=== PATIENT | female | born 1960 | race American Indian/Alaskan Native ===

== ENCOUNTER 2022-09-09 19:16 | Inpatient (IN) | payer OTHER ==
[~2022-09-09] VITALS: Ht 165.1 cm; Wt 96.9 kg
[2022-09-09 22:19] VITALS: BP 100/64
[2022-09-09] MEDS ORDERED: LOSA50 PO (22:32)
[2022-09-09] MEDS ORDERED: Inderal40 MG PO (22:33)
[2022-09-09] MEDS ORDERED: Seroquel Xr50 MG PO (22:34)
[2022-09-10 01:51] VITALS: BP 90/65
[2022-09-10 03:17] VITALS: BP 95/66
[2022-09-10 04:27] LABS: Hematocrit 35.7 % (33.0-51.0); Hemoglobin 12.3 g/dL (11.5-16.0); Mean Corpuscular HGB 32.5 pg (26.0-34.0); Mean Corpuscular HGB Conc 34.5 g/dL (31.5-36.5); Mean Corpuscular Volume 94 fL (80-100); Mean Platelet Volume 9.8 fL (9.1-12.4); Platelet Count 171 K/mm3 (150-400); RDW Coefficient Variation 13.3 % (11.7-14.2); Red Blood Cell Count 3.79 M/mm3 (3.80-5.20); White Blood Cell Count 6.01 K/mm3 (4.00-11.30)
[2022-09-10 04:52] LABS: Albumin, Blood 2.7 g/dL (3.4-5.0); Bilirubin, Total 0.6 mg/dL (0.1-1.0); Calcium, Blood 7.4 mg/dL (8.5-10.1); Creatinine, Blood 0.77 mg/dL (0.40-1.00); Globulin, Blood 2.7 g/dL (2.2-4.0); Potassium, Blood 3.8 mmol/L (3.5-5.5); Total Protein, Blood 5.4 g/dL (6.4-8.2)
--- NOTE | 2022-09-10 06:04 | NUR ---
SHIFT SUMMARY REPORT FROM CAROLINE ZAMAN AT [facility] [place]- PT ARRIVED TO ROOM AT 2210- PT DENIES CHEST PAIN- ADMISSION ASSESSMENT DONE- IGNITION SOURCE ASSESSED, PT DENIED SMOKING AND DENIED ANY IGNITION SOURCES, CALL TO DR. CANAS NOTIFIED HIM THAT ASSESSEMNT AND MEDICATION REC IS DONE. CALL FROM LAB WITH CRITICAL TROPONIN = 129- TRENDING IN THE RIGHT DIRECTION - DR. CANAS IN WITH PT AND REQUSTED EKG-NEW ORDER FOR TYLENOL - GAVE FOR C/O HEADACHE- FLUID BOLUS GIVEN AND FLUIDS CURRENTLY RUNNING 150ML/HR- PT SLEEPING WITHOUT S/S DISTRESS- BED LOW POSITION, CALL LIGHT WITHIN REACH
[2022-09-10 08:02] VITALS: BP 102/84
[2022-09-10 11:32] LABS: Thyroid Stimulating Hormone 0.862 uIU/mL (0.360-4.800)
[2022-09-10 13:33] LABS: International Normalized Ratio 0.96; Prothrombin Time Results 10.1 Sec (9.7-11.5)
--- NOTE | 2022-09-10 16:11 | NUR ---
ASSUMED CARE OF THIS PT AT THIS TIME
[2022-09-10 16:25] VITALS: BP 112/75
--- NOTE | 2022-09-10 17:45 | NUR ---
CHANGED PUMP FOR HEPARIN ADMINISTRATION W/ RN SAMMY TERRELL FOR VERIFICATION
--- NOTE | 2022-09-10 18:23 | NUR ---
SHIFT SUMMARY PT A&OX4 AND IN PLEASENT MOOD SINCE ASSUMING CARE. TOLERATING PO INTAKE WELL. HEPARIN RUNNING. TELE IN PLACE AFLUTT @ 84. CALL LIGHT W/IN REACH. SBA TO BATHROOM. ECHO COMPLETE THIS SHIFT, TROP TRENDING DOWN.
[2022-09-10 19:36] VITALS: BP 93/69
[2022-09-11 03:33] VITALS: BP 108/75
--- NOTE | 2022-09-11 06:11 | NUR ---
SHIFT SUMMARY REPORT FROM YUE RN- PT SITTING UP IN BED DURING BEDSIDE REPORT - HEPARIN INFUSING AT 15UN/KG/HR- PT DENIES CHEST PAIN/SOB- PT ON TELE-IGNITION ASSESSMENT DONE- PT UNABLE TO ANSWER QUESTIONS- FAMILY DENIED HAVING ANY IGNITION ITEMS 2129 PT USED CALL LIGHT - PT UPSET AND CRYING AND REPORTED TO THIS RN AND ANA PAULA GATES THAT SHE FEELS OVERWHELMED AND FEELS LIKE EVERYTHING THAT HAS HAPPENED IN THE LAST MONTH IS CATCHING UP WITH HER, PT AGITATED WHEN ASKING QUESTIONS- SPOKE WITH PT RE: WHAT SHE USUALLY DOES WHEN SHE FEELS THIS WAY- PT REPORTED NOT HAVING ANY COPING SKILLS, ASKED IF SHE WOULD USUALLY HAVE A DRINK AND SHE REPORTED THAT SHE WOULD TO CALM HER NERVES, CIWA DONE- GAVE ATIVAN 1MG IV- PT CALMED AND APOLIGIZED TO THIS RN FOR BEING UPSET WITH THE STAFF- ENCOURAGED PT TO TRY TO REST - PT AGREED- PT ABLE TO SLEEP T/O NIGHT- PT AWAKENED IN AM AND REPORTED FEELING MORE RELAXED AND WAS ABLE TO SLEEP ADJUSTED HEPARIN PER DIRECTIONS OF PHARMACIST
[2022-09-11 07:16] VITALS: BP 110/70
[2022-09-11 08:29] LABS: Bun/Creatinine Ratio 25.5 (12.0-20.0); Calcium, Blood 8.1 mg/dL (8.5-10.1); Creatinine, Blood 0.63 mg/dL (0.40-1.00); Potassium, Blood 4.2 mmol/L (3.5-5.5)
--- NOTE | 2022-09-11 11:45 | NUR ---
1140 THIS NURSE RECEIVED A CALL FROM STEVEN IN PHARMACY THAT THE RATE ON THE HEPARIN DRIP WAS GOOD AND DID NOT NEED CHANGED AT THIS TIME.
--- NOTE | 2022-09-11 15:54 | NUR ---
PT REMOVED TELE AND STATES THAT SHE IS "NOT PUTTING IT BACK ON." VULCANIZER OPERATOR NOTIFIED. DR ALLEN NOTIFIED THAT PATIENT STATES SHE WANTS TO LEAVE AMA. THIS NURSE UTILIZED THERAPEUTIC COMMUNICATION AND ACTIVE LISTENING TO TRY TO GET PATIENT TO STAY. PT ARRANGING TRANSPORTATION HOME AT THIS TIME.
--- NOTE | 2022-09-11 17:24 | NUR ---
PT LEFT AGAINST MEDICAL ADVICE. PT LEFT ROOM WITH STEADY GAIT AT 1718 WITH HER BELONGINGS. NO IV IN PLACE AT THAT TIME. PT EDUCATED ON RISKS OF LEAVING AMA.
== END 2022-09-11 17:26 | disposition left against medical advice (07) | DRG 309 ==
LOC: MEDS 19:16 → ICU 09-10 15:24 → MEDS 09-10 15:24
PROVIDERS: Internal Medicine; ADMIT Internal Medicine
DX: I48.92 Unspecified atrial flutter (principal); E87.1 Hypo-osmolality and hyponatremia; E87.29 Other acidosis; I24.8 Other forms of acute ischemic heart disease; F41.9 Anxiety disorder, unspecified; F10.20 Alcohol dependence, uncomplicated; R42 Dizziness and giddiness; E83.51 Hypocalcemia; I10 Essential (primary) hypertension; Z87.891 Personal history of nicotine dependence; Z91.048 Other nonmedicinal substance allergy status; Z79.899 Other long term (current) drug therapy
CPT/HCPCS: 36415; 80048; 80053; 82330; 83735; 84443; 84484; 85027; 85610; 85730; 93005; 93010; 93306; 96361; 96372; 96374; A9270; G0378; J1644; J1650; J2060; J7030